=== PATIENT | female | born 1990 | race Caucasian/White ===

== ENCOUNTER → 2016-10-03 | Outpatient (CLI) | payer OTHER ==
[~2016-10-03] MED LIST: FLINTSTONES1 EAC1; FLINTSTONES1 EACH PO; FOLIC ACID 40400 MCG PO; HEALTHY HEART1 EACH PO; MACROBID100 MG PO; PRENATAL 1+1)(P1 TAB PO; PROVERA2.5 MG INH; REGLAN5 MG PO; UNISOM 25 MG25 MG PO; ZOFRAN4 MG PO; ZYRTEC10 MG PO
== END | disposition disaster alternative care site (69) ==
LOC: LFPA 09:46
DX: N91.2 Amenorrhea, unspecified (principal)

== ENCOUNTER 2016-10-23 19:39 | Emergency (ER) | payer OTHER ==
--- NOTE | ~2016-10-23 | ER ---
[facility] 26 [facility] [address] ROOM: [place] [address] LOCATION: ED ADMIT DATE: 10/23/2016 ER/Outpatient Report DISCHARGE DATE: 10/23/2016 FAMILY PHYSICIAN: Dima Dietrich MD ATTENDING PHYSICIAN: Justin Diamond TIME SEEN: 1950 hours. HISTORY OF PRESENT ILLNESS: The patient is a 26-year-old gravid female. The patient states she is approximately 8 weeks by ultrasound. She presents complaining of vomiting and body aches. She states she may have vomited 15 times today. She has had a low-grade fever. ALLERGIES: ALLERGIC TO PENICILLIN. CURRENT MEDICATIONS: See her copied list which was reviewed. MEDICAL HISTORY: Includes SVT, some arthritis, asthma. She has had previous UTIs. SURGERIES: Include an ablation in July. SOCIAL HISTORY: Denies tobacco or alcohol use. REVIEW OF SYSTEMS: GENERAL: Low-grade fever today. HEAD AND ENT: Denies any headache or sore throat. RESPIRATORY: No wheezing or coughing. CARDIOVASCULAR: Denies any heart palpitations. GASTROINTESTINAL: Vomiting. No diarrhea. GENITOURINARY: No vaginal bleeding. Denies any dysuria. OBJECTIVE FINDINGS: VITAL SIGNS: Her initial blood pressure was 119/77; had 100.1 tympanic; respiratory rate 16; her pulse was 120, however, at discharge it was 98; and O2 sats 99%. GENERAL APPEARANCE: White female, did not appear to be any obvious distress. HEENT: Ears: Both TMs appeared intact, normal landmarks. Nose: Septum midline. Mouth: No erythema present. Oral membranes were moist. PATIENT'S NAME: CIERA RUBIN [facility] AGE: 26 Y [address] ROOM: [place] [address] LOCATION: [facility] ADMIT DATE: 10/23/2016 ER/Outpatient Report DISCHARGE DATE: 10/23/2016 FAMILY PHYSICIAN: Dima Dietrich MD ATTENDING PHYSICIAN: Justin Diamond LUNGS: Slightly diminished, but no active rales heard. ABDOMEN: Slightly tender, midepigastric. No masses palpated. Bowel sounds active. EXTREMITIES: No pedal edema. LABORATORY DATA: CMS was basically unremarkable. Urine reveals color was yellow, specific gravity was 1.020. There was negative nitrite and positive leukocytes. She also has positive ketones. Her micro; just 2-5 white cells, just trace of bacteria, but she had 5-10 epis, no blood. CBC: White count 10.6, hemoglobin 12.8, her ANC is slightly elevated at 9.6. ASSESSMENT: 1. Nausea and vomiting. 2. Gravid, approximately 8 weeks. 3. History of supraventricular tachycardia. PLAN: The patient was given a liter of fluid and 4 of Zofran IV. She states she felt much better after the fluids and was wanting to go home. The patient advised to continue clear liquids possibly, use her Zofran tonight at home. Recommend that she follow up tomorrow with Dr. Tobra. The patient verbalized understanding of our findings and plan and agreed. KERRY PEDROZA FOR MD DIEGO JARQUIN/dakota /[id number] d: 10/24/16221 t: 10/30/16 1212, OUTPATIENT REPORT
[2016-10-23 20:13] LABS: BASOPHIL % 0.2 %; EOSINOPHIL % 0.4 %; HEMATOCRIT 38.1 % (33.0-46.0); HEMOGLOBIN 12.8 g/dL (11.0-15.0); IMMATURE GRANULOCYTE % 0.4 %; LYMPHOCYTE # 0.5 K/uL (0.8-4.0); LYMPHOCYTE % 4.9 %; MCH 31.1 pg (27.0-34.0); MCHC 33.6 gm/dL (32.0-36.5); MCV 92.7 fl (83.0-98.0); MONOCYTE # 0.4 K/uL (0.0-1.0); MONOCYTE % 3.9 %; MPV 10.2 fl (9.4-12.4); NEUTROPHIL # (ANC) 9.6 K/uL (1.8-7.8); NEUTROPHIL % 90.2 %; NRBC % 0 /100WBC (0-0.00); PLATELET COUNT 210 K/uL (150-450); RBC 4.11 M/uL (3.50-5.00); RDW-CV 11.9 % (11.9-14.6); WBC 10.6 K/uL (4.0-11.0)
[2016-10-23 20:14] LABS: BLOOD URINE NEGATIVE /UL (NEGATIVE); COLOR URINE YELLOW (YELLOW); GLUCOSE URINE NEGATIVE (NEGATIVE); KETONE URINE 5 mg/dL (NEGATIVE); LEUKOCYTES URINE 25 /UL (NEGATIVE); NITRITE URINE NEGATIVE (NEGATIVE); PROTEIN URINE 30 mg/dL (NEGATIVE); TURBIDITY URINE 1+ (CLEAR); UROBILINOGEN URINE NORMAL (NORMAL)
[2016-10-23 20:19] LABS: RBC URINE NEGATIVE #/HPF (NEGATIVE)
[2016-10-23 20:20] LABS: BACTERIA URINE FEW (NEGATIVE); MUCUS URINE 2+ (NEGATIVE)
[2016-10-23 20:29] LABS: ALBUMIN 3.7 gm/dL (3.5-5.0); ALK PHOS 45 IU/L (33-138); ALT 28 IU/L (12-78); ANION GAP 16.6 (10.0-19.0); AST 16 IU/L (10-40); BLOOD UREA NITROGEN 10 mg/dL (6-24); CALCIUM 8.5 mg/dL (8.5-10.5); CHLORIDE 105 mMol/L (96-110); CO2 21 mMol/L (22-32); CREATININE 0.6 mg/dL (0.5-1.1); ESTIMATED GFR (MDRD EQUATION) > 60; POTASSIUM 3.6 mMol/L (3.7-5.1); SODIUM 139 mMol/L (135-145); TOTAL BILIRUBIN 0.4 mg/dL (0.0-1.5); TOTAL PROTEIN 6.8 g/dL (6.0-8.4)
== END 2016-10-23 21:02 | disposition disaster alternative care site (69) ==
LOC: GMED 19:39
PROVIDERS: Physician Assistant Medical
DX: O21.9 Vomiting of pregnancy, unspecified (principal); Z3A.01 Less than 8 weeks gestation of pregnancy; Z88.0 Allergy status to penicillin
CPT/HCPCS: J2405; J7030

== ENCOUNTER 2016-12-11 10:46 | Observation (INO) | payer OTHER ==
[~2016-12-11] VITALS: Ht 172.7 cm; Wt 205.0 kg
--- NOTE | ~2016-12-11 | HP ---
[facility] 26 Y [address] ROOM: [place] [address] LOCATION: [facility] ADMIT DATE: 12/11/2016 History & Physical DISCHARGE DATE: FAMILY PHYSICIAN: JUSTIN ANAND MD ATTENDING PHYSICIAN: SHAW MYRICK DATE OF SERVICE: ADMISSION DIAGNOSES: 1. Intrauterine at 15 weeks and 4 days. 2. History of chronic hypertension and supraventricular tachycardia, status post cardiac ablation. 3. Concern for possible pyelonephritis. HISTORY OF PRESENT ILLNESS: The patient is a 26-year-old G1, P0 who presented to the office today with complaints of low-grade temperatures up to 100.8 as well as back pain and some issues with not feeling like she is emptying her bladder properly. Of note, while the patient was in the office, she had systolic blood pressures in the 150s-180s/100. The patient denies any headache, vision changes, or abdominal pain. She did say she has a history of issues with high blood pressure previous to her cardiac ablation for SVT, but has not had any issues since. She denies any vaginal bleeding or cramping and has not felt positive movement at this time and had normal Doptones on exam in the office. Due to her significantly elevated blood pressures and concern for possible pyelonephritis due to CVA tenderness on exam in accordance with her above- mentioned symptoms, she was recommended to the hospital for observation and serial blood pressure monitoring. She currently again continues to deny the above symptoms, but is otherwise feeling well. PAST MEDICAL HISTORY: Significant for SVT, previously on metoprolol, but not currently on medication. PAST SURGICAL HISTORY: Significant for previous cardiac ablation. FAMILY HISTORY: Noncontributory. CABLE TELEVISION TECHNICIAN HISTORY: The patient is a G1, P0 with 15 weeks' gestational age based on an early ultrasound. Otherwise, no abnormalities with this . SOCIAL HISTORY: PATIENT'S NAME: REJI QUIROZ [facility] AGE: 26 Y [address] ROOM: [place] [address] LOCATION: [facility] ADMIT DATE: 12/11/2016 History & Physical DISCHARGE DATE: FAMILY PHYSICIAN: JUSTIN ANAND MD ATTENDING PHYSICIAN: SHAW MYRICK Denies tobacco, alcohol, or drug use. REVIEW OF SYSTEMS: Negative except as noted above. PHYSICAL EXAMINATION: VITAL SIGNS: The patient is normotensive at the hospital and vital signs have been within normal limits. GENERAL: She is awake, alert, and oriented, does not appear to be in acute distress. CARDIAC: Occasionally tachycardic, but with regular rhythm. LUNGS: Clear to auscultation bilaterally. ABDOMEN: Soft, nontender, gravid, consistent with dates. EXTREMITIES: No cyanosis or edema. LABORATORY DATA: Labs are reviewed and are all within normal limits. ASSESSMENT AND PLAN: This is a 26-year-old G1, P0, at approximately 15 weeks' gestational age admitted for serial blood pressure monitoring as well as an evaluation for possible pyelonephritis. 1. Intrauterine , status reassuring, had normal Doptones in the office, and denies any concerning obstetric complaints. 2. Elevated blood pressures. It appears the patient likely has some component of chronic hypertension, which may be exacerbated by her . Recommended the patient undergo 24-hour urine. She has had a normal CBC and CMP. Discussed with the patient that if she continues to have severe ranged blood pressures, she may be recommended to be on medications, but does not appear that she needs to be on these at this time. 3. Concern for possible pyelonephritis. The patient did have costovertebral angle tenderness on exam in the office and reports of low-grade temperature. Urine culture was collected. Due to her concerning symptoms, it was recommended she receive a dose of antibiotics and was given a dose of intramuscular Rocephin x1. We will likely discharge to home on oral antibiotics if she remains afebrile overnight. SHAW MYRICK MD GT/modl PATIENT'S NAME: [facility]ell [facility] AGE[facility] 26 Y [address] ROOM: [address] [address] LOCATION: [facility] ADMIT DATE: 12/11/2016 History & Physical DISCHARGE DATE: FAMILY PHYSICIAN: JUSTIN ANAND MD ATTENDING PHYSICIAN: SHAW MYRICK /[id number] D: [id number] T: [id number] HISTORY & PHYSICAL
[2016-12-11] MEDS ORDERED: PRENATAL 1+1)(P1 TAB PO (11:09)
[2016-12-11] MEDS ORDERED: ZOFRAN4 MG PO (11:09)
[2016-12-11] MEDS ORDERED: FLINTSTONES1 EAC1 (11:10)
[2016-12-11] MEDS ORDERED: FLINTSTONES1 EACH PO (11:10)
[2016-12-11] MEDS ORDERED: HEALTHY HEART1 EACH PO (11:12)
[2016-12-11] MEDS ORDERED: FOLIC ACID 40400 MCG PO (11:13)
[2016-12-11] MEDS ORDERED: ZYRTEC10 MG PO (11:13)
[2016-12-11] MEDS ORDERED: UNISOM 25 MG25 MG PO (11:14)
[2016-12-11] MEDS ORDERED: REGLAN5 MG PO (11:29)
[2016-12-11 11:31] LABS: BASOPHIL % 0.3 %; EOSINOPHIL # 0.2 K/uL (0.0-0.5); EOSINOPHIL % 2.3 %; HEMATOCRIT 35.1 % (33.0-46.0); HEMOGLOBIN 12.1 g/dL (11.0-15.0); IMMATURE GRANULOCYTE # 0.1 K/uL (0.0-0.3); IMMATURE GRANULOCYTE % 0.5 %; LYMPHOCYTE # 1.6 K/uL (0.8-4.0); LYMPHOCYTE % 17.7 %; MCH 31.7 pg (27.0-34.0); MCHC 34.5 gm/dL (32.0-36.5); MCV 91.9 fl (83.0-98.0); MONOCYTE # 0.6 K/uL (0.0-1.0); MONOCYTE % 6.7 %; MPV 10.3 fl (9.4-12.4); NEUTROPHIL # (ANC) 6.6 K/uL (1.8-7.8); NEUTROPHIL % 72.5 %; NRBC % 0 /100WBC (0-0.00); PLATELET COUNT 226 K/uL (150-450); RBC 3.82 M/uL (3.50-5.00); WBC 9.1 K/uL (4.0-11.0)
[2016-12-11] MEDS ORDERED: PROVERA2.5 MG INH (11:31)
[2016-12-11 11:32] LABS: BILIRUBIN URINE NEGATIVE (NEGATIVE); BLOOD URINE NEGATIVE /UL (NEGATIVE); COLOR URINE YELLOW (YELLOW); GLUCOSE URINE NEGATIVE (NEGATIVE); KETONE URINE NEGATIVE (NEGATIVE); LEUKOCYTES URINE NEGATIVE /UL (NEGATIVE); NITRITE URINE NEGATIVE (NEGATIVE); PH URINE 6.5 (4.0-8.0); PROTEIN URINE NEGATIVE (NEGATIVE); SPEC GRAVITY URINE 1.015 (1.003-1.035); TURBIDITY URINE CLEAR (CLEAR); UROBILINOGEN URINE NORMAL (NORMAL)
[2016-12-11 11:45] LABS: ALBUMIN 3.4 gm/dL (3.5-5.0); ALK PHOS 47 IU/L (33-138); ALT 24 IU/L (12-78); ANION GAP 12.7 (10.0-19.0); AST 16 IU/L (10-40); BLOOD UREA NITROGEN 8 mg/dL (6-24); CHLORIDE 108 mMol/L (96-110); CO2 22 mMol/L (22-32); CREATININE 0.5 mg/dL (0.5-1.1); ESTIMATED GFR (MDRD EQUATION) > 60; POTASSIUM 3.7 mMol/L (3.7-5.1); SODIUM 139 mMol/L (135-145); TOTAL PROTEIN 6.8 g/dL (6.0-8.4)
[2016-12-11 11:53] LABS: TOTAL BILIRUBIN 0.2 mg/dL (0.0-1.5)
--- NOTE | 2016-12-11 17:35 | NUR ---
24 hr UA in progress. 2 Tylenol at 1730 for back pain rated 7. Overlay matress on bed. GMT updated last at 1710.
--- NOTE | 2016-12-12 04:31 | NUR ---
Last VS: T:98.6 P: 96 R: 20 BP: 118/74 Pain ratin Last pain med: TYLENOL Medicated at: Effective: FHT: Dilatation: Effacement %: Station: Significant event: PT ON 24 HR UA. ENDS THIS AM.
[2016-12-12] MEDS ORDERED: MACROBID100 MG PO (12:49)
== END 2016-12-12 13:00 | disposition disaster alternative care site (69) ==
LOC: GOBS 10:46 → GOBM 10:46 → GOBS 10:47 → GOBM 10:47 → GOBS 12-12 13:00
PROVIDERS: ADMIT Obstetrics & Gynecology
DX: O99.89 Other specified diseases and conditions complicating pregnancy, childbirth and the puerperium (principal); R03.0 Elevated blood-pressure reading, without diagnosis of hypertension; O99.412 Diseases of the circulatory system complicating pregnancy, second trimester; Z3A.15 15 weeks gestation of pregnancy
CPT/HCPCS: G0378; G0379; G0463; J0696